=== PATIENT | female | born 1995 | race African-American/Black ===

== ENCOUNTER → 2016-12-22 | Outpatient (CLI) | payer BC, MEDICAID ==
[~2016-12-22] MED LIST: DICL75TA PO; ROBA750T PO
== END ==
LOC: HPND 10:20
PROVIDERS: ATTEND Obstetrics & Gynecology
DX: O09.291 Supervision of pregnancy with other poor reproductive or obstetric history, first trimester (principal); Z3A.13 13 weeks gestation of pregnancy
CPT/HCPCS: 36416; 76813

== ENCOUNTER → 2017-02-23 | Outpatient (CLI) | payer BC, MEDICAID ==
[~2017-02-23] MED LIST changes: +NEOM0.1S4 RIGHT EYE
== END ==
LOC: HPND 10:58
PROVIDERS: ATTEND Obstetrics & Gynecology
DX: O36.5120 Maternal care for known or suspected placental insufficiency, second trimester, not applicable or unspecified (principal); O09.292 Supervision of pregnancy with other poor reproductive or obstetric history, second trimester; Z3A.22 22 weeks gestation of pregnancy
CPT/HCPCS: 76811

== ENCOUNTER → 2017-04-07 | Outpatient (CLI) | payer BC, MEDICAID ==
[~2017-04-07] MED LIST changes: -DICL75TA PO; -ROBA750T PO
== END ==
LOC: HPND 10:51
PROVIDERS: ATTEND Obstetrics & Gynecology
DX: O09.292 Supervision of pregnancy with other poor reproductive or obstetric history, second trimester (principal)
CPT/HCPCS: 76816

== ENCOUNTER → 2017-05-09 | Outpatient (CLI) | payer BC, MEDICAID | LOC: HPND 13:04 | PROVIDERS: ATTEND Obstetrics & Gynecology | DX: O35.1XX0 Maternal care for (suspected) chromosomal abnormality in fetus, not applicable or unspecified (principal); O09.293 Supervision of pregnancy with other poor reproductive or obstetric history, third trimester | CPT/HCPCS: 76816 ==